=== PATIENT | female | born 1955 | race Caucasian/White ===

== ENCOUNTER 2016-12-07 08:47 | Emergency (ER) | payer BC ==
[~2016-12-07] VITALS: Ht 162.6 cm; Wt 89.6 kg
[~2016-12-07 08:47] MED LIST: ALBUTEROL; APID; APIDRA; APIDRA100 UNIT/1 SC; ASMANEX INHALER; ASMANEX TW200 MICRO1 IH; ASPIRIN81 M1; ATARAX,VISTARIL25 MG PO; BENTYL20 MG PO; CALCIUM 500 MG1 EACH PO; CLOBETASOL PROP60 GM TP; COLACE100 MG PO; CRESTOR10 MG PO; CYMBALTA60 MG PO; DAILY VITE1 EAC1 PO; DIAZEPAM5 MG PO; ECOTRIN325 MG PO; EXCEDRIN EXT1 TABLET PO; EXCEDRIN EXTRA1 EACH PO; GABAPENTIN300 MG PO; HUMALOG100 UNIT/2 SC; KEFLEX500 MG PO; LEVEMIR FL100 UNIT/1 SC; LEVEMIR100 UNIT/1 SC; LEVEMIR100 UNIT/2 SC; LOVASTATIN40 MG; MOBIC15 MG PO; MONOPRIL; MOTRIN800 MG PO; MULTI-VIT 55 P1 EACH PO; NEURONTIN300 MG PO; NEXIUM40 MG PO; PERCOCET 5/31 TABLET PO; PHENERGAN PO; POTASSIUM GLUCO90 MG PO; POTASSIUM GLUCO99 M1 PO; PROAIR HFA8.5 GM IH; RANITIDINE HCL150 M1; SENNA8.6 M1 PO; TOPAMAX100 MG PO; TOPAMAX50 MG PO; TRAMADOL HCL50 MG PO; VALIUM5 MG PO; VICODIN,LORT1 TABLET PO; VIT D; ZOFRAN4 MG PO
[2016-12-07 09:30] LABS: HEMATOCRIT 36.1 % (36.0-46.0); MCH 28.6 PG (29.0-34.0); MCHC 33.2 G/DL (30.0-36.0); MEAN PLAT.VOLUME 9.7 uM^3 (9.5-12.4); PLATELET COUNT 498 K/uL (156-360); RBC DIS.WIDTH-CV 12.8 % (11.8-14.6); RBC DIS.WIDTH-SD 40.3 % (39-53); WHITE BLOOD COUNT 6.3 K/uL (4.1-10.2)
[2016-12-07 09:43] LABS: CHLORIDE 104 mEq/L (99-109); POTASSIUM 4.2 mEq/L (3.7-5.4); SODIUM 137 mEq/L (136-147)
[2016-12-07 09:44] LABS: D-DIMER ELISA 2.85 mg/L FEU (< 0.57); INTER. NORMALIZED RATIO 1.1; PROTHROMBIN TIME 11.1 (9.2-11.2)
[2016-12-07 09:45] LABS: GLUCOSE 238 mg/dL (70-99)
[2016-12-07 09:46] LABS: ANION GAP 12 MEQ/L (2-14)
[2016-12-07 09:48] LABS: GFR ESTIMATE (CALCULATED) > 59 mL/min/
[2016-12-07 09:49] LABS: UREA NITROGEN (BUN) 32 mg/dL (9-23)
[2016-12-07 09:51] LABS: TROP-I INTERPRETATION NEGATIVE; TROPONIN-I < 0.01 ng/mL (0.0-0.30)
[2016-12-07 12:31] LABS: TROP-I INTERPRETATION NEGATIVE; TROPONIN-I < 0.01 ng/mL (0.0-0.30)
[2016-12-07 13:14] VITALS: BP 144/80
== END 2016-12-07 13:15 | disposition home or self-care (01) ==
LOC: EME 08:47
PROVIDERS: Emergency Medicine
DX: R07.89 Other chest pain (principal); E11.65 Type 2 diabetes mellitus with hyperglycemia; R05 Cough; Z98.890 Other specified postprocedural states; J45.909 Unspecified asthma, uncomplicated; E78.5 Hyperlipidemia, unspecified; Z79.82 Long term (current) use of aspirin; Z79.4 Long term (current) use of insulin
CPT/HCPCS: 71020; 71275; 80048; 84484; 85027; 85379; 85610; 85730; 93005; 99281; 99285; J1885

== ENCOUNTER 2017-03-12 09:14 | Emergency (ER) | payer BC ==
[~2017-03-12] VITALS: Ht 162.6 cm; Wt 88.9 kg
[2017-03-12 10:20] LABS: HEMATOCRIT 35.4 % (36.0-46.0); MCH 27.6 PG (29.0-34.0); MCHC 32.5 G/DL (30.0-36.0); MCV 84.9 FL (83-99); MEAN PLAT.VOLUME 10.1 uM^3 (9.5-12.4); PLATELET COUNT 376 K/uL (156-360); RBC DIS.WIDTH-CV 14.1 % (11.8-14.6); RBC DIS.WIDTH-SD 43.8 % (39-53); RED BLOOD COUNT 4.17 M/uL (3.80-5.20)
[2017-03-12 10:32] LABS: CHLORIDE 104 mEq/L (99-109); POTASSIUM 4.2 mEq/L (3.7-5.4); SODIUM 137 mEq/L (136-147)
[2017-03-12 10:34] LABS: GLUCOSE 225 mg/dL (70-99)
[2017-03-12 10:35] LABS: ANION GAP 9 MEQ/L (2-14)
[2017-03-12 10:38] LABS: GFR ESTIMATE (CALCULATED) > 59 mL/min/; UREA NITROGEN (BUN) 17 mg/dL (9-23)
[2017-03-12] MEDS ORDERED: TESSALON PERLE100 MG PO (12:53)
[2017-03-12] MEDS ORDERED: ZITHROMAX Z-PA250 MG PO (12:53)
[2017-03-12] MEDS ORDERED: MUCUS ER600 MG PO (12:53)
[2017-03-12] MEDS ORDERED: ROBITUSSIN NIG118 ML PO (12:53)
[2017-03-12] MEDS ORDERED: FLEXERIL10 MG PO (12:55)
[2017-03-12 13:13] VITALS: BP 147/77
== END 2017-03-12 13:14 | disposition home or self-care (01) ==
LOC: EME 09:14
DX: J18.9 Pneumonia, unspecified organism (principal); Z91.09 Other allergy status, other than to drugs and biological substances; J45.909 Unspecified asthma, uncomplicated; J02.9 Acute pharyngitis, unspecified; D64.9 Anemia, unspecified; E11.65 Type 2 diabetes mellitus with hyperglycemia; Z79.4 Long term (current) use of insulin; Z96.41 Presence of insulin pump (external) (internal); I10 Essential (primary) hypertension; E78.5 Hyperlipidemia, unspecified; Z90.49 Acquired absence of other specified parts of digestive tract; Z79.82 Long term (current) use of aspirin
CPT/HCPCS: 80048; 85027; 99281; 99284

== ENCOUNTER 2017-03-16 15:43 | Observation (INO) | payer BC ==
[~2017-03-16] VITALS: Ht 162.6 cm; Wt 89.0 kg
[~2017-03-16 15:43] MED LIST changes: +FLEXERIL10 MG PO; +MUCUS ER600 MG PO; +ROBITUSSIN NIG118 ML PO; +TESSALON PERLE100 MG PO; +ZITHROMAX Z-PA250 MG PO
[2017-03-16 17:21] LABS: HEMATOCRIT 33.7 % (36.0-46.0); MCHC 33.5 G/DL (30.0-36.0); MCV 83.6 FL (83-99); MEAN PLAT.VOLUME 10.1 uM^3 (9.5-12.4); PLATELET COUNT 344 K/uL (156-360); RBC DIS.WIDTH-SD 43.2 % (39-53); RED BLOOD COUNT 4.03 M/uL (3.80-5.20); WHITE BLOOD COUNT 5.1 K/uL (4.1-10.2)
[2017-03-16 17:29] LABS: CHLORIDE 103 mEq/L (99-109); SODIUM 136 mEq/L (136-147)
[2017-03-16 17:30] LABS: GLUCOSE 213 mg/dL (70-99); INTER. NORMALIZED RATIO 1.1; PROTHROMBIN TIME 10.7 (9.2-11.2); PTT 27.3 (25-32)
[2017-03-16 17:32] LABS: ANION GAP 11 MEQ/L (2-14)
[2017-03-16 17:34] LABS: GFR ESTIMATE (CALCULATED) 53 mL/min/
[2017-03-16 17:43] LABS: TROP-I INTERPRETATION NEGATIVE; TROPONIN-I < 0.01 ng/mL (0.0-0.30)
[2017-03-16 17:45] LABS: UREA NITROGEN (BUN) 32 mg/dL (9-23)
[2017-03-16] MEDS ORDERED: TOPICORT 0.05%60 GM TP (19:58)
[2017-03-16] MEDS ORDERED: INSULIN PUMP SCCONT (19:58)
[2017-03-16] MEDS ORDERED: NAMENDA XR28 MG PO (19:59)
[2017-03-16] MEDS ORDERED: DICLOFENAC SOD100 MG PO (19:59)
[2017-03-16] MEDS ORDERED: ZOMIG2.5 MG PO (19:59)
[2017-03-16 23:22] VITALS: BP 120/66
[2017-03-17 01:03] LABS: TROP-I INTERPRETATION NEGATIVE; TROPONIN-I < 0.01 ng/mL (0.0-0.30)
[2017-03-17 04:01] VITALS: BP 130/60
[2017-03-17 07:43] LABS: HEMATOCRIT 33.8 % (36.0-46.0); MCH 27.4 PG (29.0-34.0); MCHC 32.2 G/DL (30.0-36.0); MCV 84.9 FL (83-99); MEAN PLAT.VOLUME 10.4 uM^3 (9.5-12.4); PLATELET COUNT 341 K/uL (156-360); RBC DIS.WIDTH-CV 14.2 % (11.8-14.6); RBC DIS.WIDTH-SD 44.2 % (39-53); RED BLOOD COUNT 3.98 M/uL (3.80-5.20); WHITE BLOOD COUNT 5.4 K/uL (4.1-10.2)
[2017-03-17 08:04] LABS: ANION GAP 10 MEQ/L (2-14); CHLORIDE 103 MEQ/L (99-109); POTASSIUM 4.5 MEQ/L (3.7-5.4); SAMPLE HEMOLYSIS CHECK 0; SAMPLE ICTERIC CHECK 0; SAMPLE LIPEMIA CHECK 0; SODIUM 135 MEQ/L (136-147)
[2017-03-17 08:10] LABS: GFR ESTIMATE (CALCULATED) > 59 mL/min/; GLUCOSE 207 mg/dL (70-99); UREA NITROGEN (BUN) 27 mg/dL (9-23)
[2017-03-17 08:45] VITALS: BP 130/69
[2017-03-17 11:20] LABS: TROP-I INTERPRETATION NEGATIVE; TROPONIN-I < 0.01 ng/mL (0.0-0.30)
[2017-03-17 12:21] VITALS: BP 121/71
[2017-03-17 20:47] VITALS: BP 122/87
[2017-03-17 21:02] LABS: POINT-OF-CARE METER ID UU13113700
[2017-03-17 23:52] VITALS: BP 122/60
[2017-03-18 00:15] LABS: TROP-I INTERPRETATION NEGATIVE; TROPONIN-I < 0.01 ng/mL (0.0-0.30)
[2017-03-18 04:01] VITALS: BP 145/67
[2017-03-18 06:05] LABS: POINT-OF-CARE METER ID UU13113700
[2017-03-18 07:53] VITALS: BP 121/62
[2017-03-18] MEDS ORDERED: AUGMENTIN875 MG PO (10:06)
[2017-03-19 07:44] LABS: INTERNAL CONTROL VALID? YES
== END 2017-03-18 11:13 | disposition home or self-care (01) ==
LOC: EME 15:43 → EDOF 19:59 → 5WEST 19:59 → EDOF 19:59 → 5WEST 23:17
PROVIDERS: Emergency Medicine; Hospitalist; Nurse Practitioner Family; Physician Assistant Medical
DX: R07.81 Pleurodynia (principal); J90 Pleural effusion, not elsewhere classified; E11.65 Type 2 diabetes mellitus with hyperglycemia; Z79.4 Long term (current) use of insulin; E78.5 Hyperlipidemia, unspecified; J18.9 Pneumonia, unspecified organism; I10 Essential (primary) hypertension; Z79.82 Long term (current) use of aspirin; Z85.828 Personal history of other malignant neoplasm of skin; Z82.49 Family history of ischemic heart disease and other diseases of the circulatory system; Z88.8 Allergy status to other drugs, medicaments and biological substances; K90.41 Non-celiac gluten sensitivity
CPT/HCPCS: 71275; 80048; 82948; 84484; 85027; 85610; 85730; 87070; 87205; 87449; 93005; 93306; 94640; 94640 76; 99202; 99281; 99285; G0378; J0456; J0696; J1644; J1885; J7050

== ENCOUNTER 2017-09-23 22:15 | Observation (INO) | payer BC ==
[~2017-09-23] VITALS: Ht 162.6 cm; Wt 86.5 kg
[~2017-09-23 22:15] MED LIST changes: +AUGMENTIN875 MG PO; +DICLOFENAC SOD100 MG PO; +INSULIN PUMP SCCONT; +NAMENDA XR28 MG PO; +TOPICORT 0.05%60 GM TP; +ZOMIG2.5 MG PO
[2017-09-23 22:47] LABS: BASOPHIL (%) 0.7 % (0-1); BASOPHIL COUNT 0.1 K/uL (0-0.1); EOSINOPHIL (%) 5.4 % (0-5); EOSINOPHIL COUNT 0.6 K/uL (0-0.3); HEMATOCRIT 34.5 % (36.0-46.0); HEMOGLOBIN 11.4 G/DL (11.9-15.5); IMMATURE GRANULOCYTE (%) 0.6 % (0.0-0.7); LYMPHOCYTE (%) 12.5 % (15-42); LYMPHOCYTE COUNT 1.5 K/uL (1.0-2.8); MCH 27.7 PG (29.0-34.0); MCV 83.9 FL (83-99); MONOCYTE (%) 8.5 % (3-12); NEUTROPHIL (%) 72.3 % (45-76); NEUTROPHIL COUNT 8.5 K/uL (1.8-6.4); PLATELET COUNT 438 K/uL (156-360); RBC DIS.WIDTH-CV 14.4 % (11.8-14.6); RBC DIS.WIDTH-SD 44.2 % (39-53); RED BLOOD COUNT 4.11 M/uL (3.80-5.20); WHITE BLOOD COUNT 11.7 K/uL (4.1-10.2)
[2017-09-23 22:56] LABS: ALBUMIN 3.6 g/dL (3.2-4.8); CHLORIDE 105 mEq/L (99-109); POTASSIUM 3.9 mEq/L (3.7-5.4); SODIUM 137 mEq/L (136-147)
[2017-09-23 22:57] LABS: MAGNESIUM 1.7 mg/dL (1.3-2.7)
[2017-09-23 22:59] LABS: GLUCOSE 188 mg/dL (70-99); TOTAL PROTEIN 6.6 g/dL (6.4-8.3)
[2017-09-23 23:01] LABS: TOTAL BILIRUBIN 0.2 mg/dL (0.0-1.0)
[2017-09-23 23:02] LABS: ALKALINE PHOSPHATASE 167 IU/L (3-129); CREATININE 0.9 mg/dL (0.6-1.3); GFR ESTIMATE (CALCULATED) > 59 mL/min/
[2017-09-23 23:03] LABS: UREA NITROGEN (BUN) 22 mg/dL (9-23)
[2017-09-23 23:04] LABS: AST (GOT) 18 IU/L (2-34)
[2017-09-23 23:05] LABS: ALT (GPT) 27 IU/L (3-49)
[2017-09-23 23:11] LABS: TROP-I INTERPRETATION NEGATIVE; TROPONIN-I < 0.01 ng/mL (0.0-0.30)
[2017-09-24] MEDS ORDERED: HORIZANT600 MG PO (00:01)
[2017-09-24] MEDS ORDERED: MUCINEX600 MG PO (00:03)
[2017-09-24 02:34] VITALS: BP 134/65
[2017-09-24 06:01] LABS: TROP-I INTERPRETATION NEGATIVE; TROPONIN-I 0.01 ng/mL (0.0-0.30)
[2017-09-24 09:00] VITALS: BP 142/64
[2017-09-24 11:41] VITALS: BP 157/75
[2017-09-24 11:51] LABS: TROP-I INTERPRETATION NEGATIVE; TROPONIN-I < 0.01 ng/mL (0.0-0.30)
[2017-09-24 11:53] LABS: TROP-I INTERPRETATION NEGATIVE; TROPONIN-I < 0.01 ng/mL (0.0-0.30)
[2017-09-24] MEDS ORDERED: PEN-VEE K,VEET500 MG PO (12:21)
== END 2017-09-24 13:53 | disposition home or self-care (01) ==
LOC: EME 22:15 → 5WEST 23:56 → EDOF 23:56 → ENRESERV 09-24 00:01 → 5WEST 09-24 02:13
PROVIDERS: Emergency Medicine; Hospitalist; Physician Assistant
DX: R55 Syncope and collapse (principal); J02.0 Streptococcal pharyngitis; E11.9 Type 2 diabetes mellitus without complications; Z96.41 Presence of insulin pump (external) (internal); E78.5 Hyperlipidemia, unspecified; I10 Essential (primary) hypertension; I34.1 Nonrheumatic mitral (valve) prolapse; Z85.828 Personal history of other malignant neoplasm of skin; J45.909 Unspecified asthma, uncomplicated; K21.9 Gastro-esophageal reflux disease without esophagitis; Z90.710 Acquired absence of both cervix and uterus; Z90.49 Acquired absence of other specified parts of digestive tract; Z79.4 Long term (current) use of insulin; J32.2 Chronic ethmoidal sinusitis; K90.41 Non-celiac gluten sensitivity; Z82.49 Family history of ischemic heart disease and other diseases of the circulatory system; Z82.0 Family history of epilepsy and other diseases of the nervous system; Z88.2 Allergy status to sulfonamides; Z88.8 Allergy status to other drugs, medicaments and biological substances; Z88.5 Allergy status to narcotic agent
CPT/HCPCS: 70486; 80053; 82948; 83735; 84484; 85025; 87502; 87651 90; 93005; 99202; 99281; 99285; G0378; J1650

== ENCOUNTER 2017-10-28 06:30 | Day surgery (SDC) | payer BC ==
[~2017-10-28] VITALS: Ht 162.6 cm; Wt 89.5 kg
[~2017-10-28 06:30] MED LIST changes: +BENADRYL50 MG PO; +HORIZANT600 MG PO; +MUCINEX600 MG PO; +PEN-VEE K,VEET500 MG PO; +RANITIDINE HCL300 MG PO
[2017-10-28 07:19] VITALS: BP 146/64
[2017-10-28 14:50] VITALS: BP 112/55
[2017-10-28 20:24] VITALS: BP 103/53
[2017-10-29 00:48] VITALS: BP 117/60
[2017-10-29 03:41] VITALS: BP 110/58
[2017-10-29 06:37] LABS: BASOPHIL (%) 0.8 % (0-1); BASOPHIL COUNT 0.1 K/uL (0-0.1); EOSINOPHIL (%) 3.7 % (0-5); EOSINOPHIL COUNT 0.5 K/uL (0-0.3); HEMATOCRIT 30.7 % (36.0-46.0); HEMOGLOBIN 9.7 G/DL (11.9-15.5); IMMATURE GRANULOCYTE (%) 0.5 % (0.0-0.7); LYMPHOCYTE (%) 10.3 % (15-42); LYMPHOCYTE COUNT 1.3 K/uL (1.0-2.8); MCH 26.9 PG (29.0-34.0); MCHC 31.6 G/DL (30.0-36.0); MONOCYTE (%) 5.6 % (3-12); MONOCYTE COUNT 0.7 K/uL (0-0.8); NEUTROPHIL (%) 79.1 % (45-76); PLATELET COUNT 443 K/uL (156-360); RBC DIS.WIDTH-CV 14.4 % (11.8-14.6); RBC DIS.WIDTH-SD 44.7 % (39-53); RED BLOOD COUNT 3.61 M/uL (3.80-5.20); WHITE BLOOD COUNT 12.6 K/uL (4.1-10.2)
[2017-10-29 07:08] LABS: ALBUMIN 2.6 G/DL (3.2-4.8); ALKALINE PHOSPHATASE 106 IU/L (3-129); ALT (GPT) 13 IU/L (3-49); AST (GOT) 19 IU/L (2-34); CHLORIDE 99 MEQ/L (99-109); CREATININE 0.9 MG/DL (0.6-1.3); GFR ESTIMATE (CALCULATED) > 59 mL/min/; GLUCOSE 118 mg/dL (70-99); MAGNESIUM 1.9 mg/dl (1.3-2.7); PHOSPHORUS 3.9 mg/dL (2.5-4.9); POTASSIUM 4.8 MEQ/L (3.7-5.4); SODIUM 140 MEQ/L (136-147); TOTAL BILIRUBIN 0.4 MG/DL (0.0-1.0); TOTAL PROTEIN 5.1 G/DL (6.4-8.3); UREA NITROGEN (BUN) 19 mg/dL (9-23)
[2017-10-29 07:45] VITALS: BP 124/58
[2017-10-29] MEDS ORDERED: ENDOCET 5-3251 EACH PO (08:03)
[2017-10-29] MEDS ORDERED: COLACE100 MG PO (08:04)
== END 2017-10-29 11:10 | disposition home or self-care (01) ==
LOC: SDC 06:30 → 2SOUTH 12:44 → 2EASTP 12:44 → ENRESERV 12:50 → CANRESERV 12:50 → ENRESERV 12:52 → 2EASTP 14:33 → SDC 15:57 → 2EASTP 10-29 11:10
PROVIDERS: Surgery
PROC: 0WUF4JZ Supplement Abdominal Wall with Synthetic Substitute, Percutaneous Endoscopic Approach (ICD-10-PCS; principal; 2017-10-28)
DX: K43.2 Incisional hernia without obstruction or gangrene (principal); E78.5 Hyperlipidemia, unspecified; J45.909 Unspecified asthma, uncomplicated; E11.65 Type 2 diabetes mellitus with hyperglycemia; K21.9 Gastro-esophageal reflux disease without esophagitis; E03.9 Hypothyroidism, unspecified; Z79.4 Long term (current) use of insulin; Z96.41 Presence of insulin pump (external) (internal); Z85.828 Personal history of other malignant neoplasm of skin; Z85.3 Personal history of malignant neoplasm of breast; Z88.2 Allergy status to sulfonamides; Z79.82 Long term (current) use of aspirin
CPT/HCPCS: 80053; 82948; 83735; 84100; 85025; 87641; 94799; C1781; G0378; J0690; J1170; J1200; J1650; J1815; J1885; J2001; J2405; J2710; J2765; J2795; J3010; J3475; J7120; Q0175; S0074